=== PATIENT | female | born 1980 | race Caucasian/White ===

== ENCOUNTER 2018-01-02 14:40 | Emergency (ER) | payer SELFPAY ==
[~2018-01-02] VITALS: Ht 165.1 cm; Wt 63.5 kg
--- NOTE | 2018-01-02 15:31 | Emergency Room Report ---
History of Present Illness General Chief Complaint: To Be Triaged Present Illness HPI 37 YO Female presents to the ED for mechanical trip and fall last night that resulted in sustaining an abrasion to the chin. 3/10 in severity pain that is localized and only exacerbated with touch. Denies LOC. denies bony tenderness. reports bleeding has stopped. pt. also reports bruising to the chin. pt. denies vomiting. reports had some nausea this am however attributes it to drinking heavily last night. denies confusion, drowsiness. pt. states she is UTD with tetanus which was given to her in [place]. [place] from [place]. Denies numbness tingling or loss of sensation or gross motor movements of the extremities, incontinence of bowel or bladder. Denies CP, Palpitations, LOC, AMS , dizziness, Changes in Vision, Sensation, paresthesias, or a sudden severe headache. Allergies: Coded Allergies: PENICILLINS (Verified Allergy, Unknown, 01/02/18) Patient History Past Medical History: see triage record Past Surgical History: none Pertinent Family History: none Now: No Immunizations: UTD Reviewed Nursing Documentation: PMH: Agreed, PSxH: Agreed Review of Systems All Other Systems: negative except mentioned in HPI Physical Exam Sp02 EP Interpretation: reviewed, normal General Appearance: no apparent distress, alert, GCS 15, non-toxic Head: normocephalic, other - chin abrasion 3 cm in length, bleeding contrilled , small 0.5cm abrasion to the lower lip with bruiseing. Eyes: bilateral eye normal inspection, bilateral eye PERRL ENT: hearing grossly normal, normal voice, other - abrasion on the lower lip with bruising 0.5cm, not through and through, not bleeding at this time. superficial. Neck: full range of motion, no bony tend Respiratory: lungs clear, normal breath sounds, speaking full sentences Cardiovascular #1: regular rate, rhythm Musculoskeletal: back normal, gait/station normal, normal range of motion, non- tender Neurologic: alert, oriented x3, responsive, motor strength/tone normal, sensory intact, normal gait, speech normal, grossly normal Psychiatric: judgement/insight normal Skin: normal color, no rash, warm/dry, well hydrated, abrasions - laceration with abrasion to the lower portion of the chin 3 cm in length. abrasion on the lower lip with bruising 0.5cm, not through and through, not bleeding at this time. superficial. Procedures Laceration/Wound Repair Laceration/Wound Repair : Consent: Verbal Wound Location: head - chin Wound's Depth, Shape: superficial Wound Explored: clean Irrigated w/ Saline (ccs): 500 Wound Repaired With: Steri-strips Deep Layer Suture Size/Type: chromic Sterile Dressing Applied?: Yes Splint Applied?: No Sling Applied?: No Patient Tolerated: Well Complications: None Medical Decision Making PA Attestation Dr. Reich is my supervising Physician whom patient management has been discussed with. Diagnostic Impression: Primary Impression: Abrasion of face Qualified Codes: S00.81XA - Abrasion of other part of head, initial encounter Additional Impressions: Abrasion of lip, initial encounter Laceration of skin of chin Qualified Codes: S01.81XA - Laceration without foreign body of other part of head, initial encounter ER Course 37 YO Female presents to the ED for mechanical trip and fall last night that resulted in sustaining an abrasion to the chin. 3/10 in severity pain that is localized and only exacerbated with touch. Denies LOC. denies bony tenderness. reports bleeding has stopped. pt. also reports bruising to the chin. pt. denies vomiting. reports had some nausea this am however attributes it to drinking heavily last night. denies confusion, drowsiness. pt. states she is UTD with tetanus which was given to her in [place]. visiting from [place]. Denies numbness tingling or loss of sensation or gross motor movements of the extremities, incontinence of bowel or bladder. Denies CP, Palpitations, LOC, AMS , dizziness, Changes in Vision, Sensation, paresthesias, or a sudden severe headache. Ddx considered but are not limited to laceration, tendon injury, cellulitis, amputation, fracture, contusion just to name a few. Vital signs: are WNL, pt. is afebrile H&PE are most consistent with: Chin abrasion/laceration approx 3 cm in length , pt. also has superficial crack to the lower lip, and some bruising. No Neuro Deficits, alert, answering questions appropriately. no slurred speech, weakness or lethargy. no appreciable bony ttp. ORDERS: none required at this time, the diagnosis is clinical ED INTERVENTIONS: - The wound was copiously irrigated with normal saline, and explored for foreign body for which no FB was found. - The wound was approximated and closed using Steri-Strips -sterile dressing is applied. -Bacitracin applied to abrasion on lip. Discussed with patient: That we make every effort to approximate the laceration as best as we can so that scarring will be as cosmetically pleasing as possible with our limited cosmetic skill set in the Emergency dept. Regardless of our best efforts there will be scarring after laceration repair. The extent of scarring is unknown at this time. DISCHARGE: At this time pt. is stable for d/c to home. Will provide printed patient care instructions, and any necessary prescriptions. Care plan and follow up instructions have been discussed with the patient prior to discharge. Disposition: HOME, SELF-CARE Condition: Stable Scripts Bacitracin/Polymyxin B Sulfate (BACITRACIN-POLYMYXIN OINTMENT) 28.35 Gm Oint...g. 1 APPLIC TP BID, #28 GM Prov: Tali Edmond 01/02/18 Patient Instructions: Abrasion, [id number], Nonsutured Laceration Care Additional Instructions: Take medications as directed. Follow up with a Primary Care Provider in 3-5 days, even if your symptoms have resolved. --Please review list of primary care clinics, if you do not already have a primary care provider Return sooner to ED if new symptoms occur, or current symptoms become worse. - Please note that this Emergency Department Report was dictated using [employer] systems integrator technology software, occasionally this can lead to erroneous entry secondary to interpretation by the dictation equipment. Tali Edmond Jan 02, 2018 15:31
[2018-01-02] MEDS ORDERED: BACITRACIN-P28.35 GM TP (15:35)
[2018-01-02] MEDS ORDERED: Bacitracin Oint UD TOPIC ONE (16:15)
[2018-01-02 16:20] VITALS: BP 120/80
== END 2018-01-02 16:20 | disposition home or self-care (01) ==
LOC: EMR 15:30
DX: S01.81XA Laceration without foreign body of other part of head, initial encounter (principal); S00.511A Abrasion of lip, initial encounter; W01.0XXA Fall on same level from slipping, tripping and stumbling without subsequent striking against object, initial encounter; Y92.9 Unspecified place or not applicable; Z88.0 Allergy status to penicillin
CPT/HCPCS: 99284